=== PATIENT | male | born 1965 | race Asian ===

== ENCOUNTER 2018-03-22 07:57 | Day surgery (SDC) | payer BC ==
[2018-03-22] MEDS ORDERED: FENTAnyl 50 MCG/ML VIAL (10:49)
[2018-03-22] MEDS ORDERED: MIDAZOLAM 1 MG/ML 2 ML INJ ×2 (10:49)
== END 2018-03-22 13:15 | disposition home or self-care (01) ==
LOC: GIL 07:57
DX: Z12.11 Encounter for screening for malignant neoplasm of colon (principal); K64.8 Other hemorrhoids; I10 Essential (primary) hypertension
CPT/HCPCS: 45378